=== PATIENT | female | born 1955 | race Hispanic/Latino ===

== ENCOUNTER 2017-06-07 12:01 | Emergency (ER) | payer OTHER ==
[~2017-06-07] VITALS: Ht 154.9 cm; Wt 91.4 kg
[2017-06-07 12:41] LABS: HEMATOCRIT 40.8 % (36.0-46.0); MCH 30.4 PG (29.0-34.0); MCHC 33.6 G/DL (30.0-36.0); MCV 90.7 FL (83-99); MEAN PLAT.VOLUME 10.8 uM^3 (9.5-12.4); PLATELET COUNT 153 K/uL (156-360); RBC DIS.WIDTH-CV 12.7 % (11.8-14.6); RBC DIS.WIDTH-SD 41.1 % (39-53); WHITE BLOOD COUNT 5.9 K/uL (4.1-10.2)
[2017-06-07 12:52] LABS: CHLORIDE 107 mEq/L (99-109); POTASSIUM 4.4 mEq/L (3.7-5.4); SODIUM 141 mEq/L (136-147)
[2017-06-07 12:54] LABS: GLUCOSE 102 mg/dL (70-99)
[2017-06-07 12:56] LABS: ANION GAP 9 MEQ/L (2-14)
[2017-06-07 12:59] LABS: UREA NITROGEN (BUN) 11 mg/dL (9-23)
[2017-06-07 13:01] LABS: GFR ESTIMATE (CALCULATED) > 59 mL/min/
[2017-06-07 13:02] LABS: TROP-I INTERPRETATION NEGATIVE; TROPONIN-I < 0.01 ng/mL (0.0-0.30)
[2017-06-07] MEDS ORDERED: METFORMIN HCL500 MG PO (13:59)
[2017-06-07] MEDS ORDERED: SINGULAIR10 MG PO (13:59)
[2017-06-07] MEDS ORDERED: LOSARTAN POTASS25 MG PO (14:00)
[2017-06-07] MEDS ORDERED: ZITHROMAX Z-PA250 MG PO (14:33)
[2017-06-07 15:01] VITALS: BP 146/102
== END 2017-06-07 15:05 | disposition home or self-care (01) ==
LOC: EME 12:01
DX: J40 Bronchitis, not specified as acute or chronic (principal); J02.9 Acute pharyngitis, unspecified; H92.09 Otalgia, unspecified ear; I10 Essential (primary) hypertension; E11.9 Type 2 diabetes mellitus without complications; Z79.84 Long term (current) use of oral hypoglycemic drugs
CPT/HCPCS: 71020; 80048; 84484; 85027; 93005; 99281; 99284

== ENCOUNTER 2017-12-06 17:11 | Observation (INO) | payer OTHER ==
[~2017-12-06] VITALS: Ht 157.5 cm; Wt 96.8 kg
[~2017-12-06 17:11] MED LIST: LOSARTAN POTASS25 MG PO; METFORMIN HCL500 MG PO; SINGULAIR10 MG PO; ZITHROMAX Z-PA250 MG PO
[2017-12-06 18:10] LABS: HEMATOCRIT 39.2 % (36.0-46.0); HEMOGLOBIN 13.6 G/DL (11.9-15.5); MCHC 34.7 G/DL (30.0-36.0); MCV 89.3 FL (83-99); PLATELET COUNT 151 K/uL (156-360); RBC DIS.WIDTH-CV 12.3 % (11.8-14.6); RBC DIS.WIDTH-SD 39.8 % (39-53); RED BLOOD COUNT 4.39 M/uL (3.80-5.20); WHITE BLOOD COUNT 5.4 K/uL (4.1-10.2)
[2017-12-06 18:17] LABS: CHLORIDE 106 mEq/L (99-109); POTASSIUM 4.6 mEq/L (3.7-5.4); SODIUM 143 mEq/L (136-147)
[2017-12-06 18:19] LABS: GLUCOSE 140 mg/dL (70-99)
[2017-12-06 18:23] LABS: CREATININE 0.7 mg/dL (0.6-1.3); GFR ESTIMATE (CALCULATED) > 59 mL/min/
[2017-12-06 18:24] LABS: UREA NITROGEN (BUN) 9 mg/dL (9-23)
[2017-12-06 18:48] LABS: TROP-I INTERPRETATION NEGATIVE; TROPONIN-I < 0.01 ng/mL (0.0-0.30)
[2017-12-06 18:48] LABS: APPEARANCE CLEAR ((CLEAR)); BILIRUBIN NEGATIVE; BLOOD NEGATIVE; COLOR STRAW ((YELLOW)); GLUCOSE (STRIP) NEGATIVE; KETONES NEGATIVE; LEUKOCYTES NEGATIVE; NITRITE NEGATIVE; PROTEIN (STRIP) NEGATIVE; SPECIFIC GRAVITY 1.008 (1.000-1.030); UCUL ADDED? NO; UROBILINOGEN 0.2 MG/DL (0.2-1.0)
[2017-12-06] MEDS ORDERED: LO-DOSE ASPIRIN81 M2 PO (20:44)
[2017-12-06] MEDS ORDERED: PRILOSEC20 MG PO (20:45)
[2017-12-06] MEDS ORDERED: FISH OIL 1,0001 EAC7 PO (20:46)
[2017-12-06] MEDS ORDERED: CYMBALTA30 MG PO (20:46)
[2017-12-06] MEDS ORDERED: CYMBALTA60 MG PO (20:47)
[2017-12-06] MEDS ORDERED: NEURONTIN300 MG PO (20:48)
[2017-12-06] MEDS ORDERED: PROAIR HFA8.5 GM IH (20:49)
[2017-12-06] MEDS ORDERED: [UNRECOGNIZED DRUG - OTHER] TP (20:52)
[2017-12-06] MEDS ORDERED: [UNRECOGNIZED DRUG - REMARK] SC (20:54)
[2017-12-06] MEDS ORDERED: BUSPIRONE HCL15 MG PO (20:55)
[2017-12-06] MEDS ORDERED: FLOVENT 11120 INHALA IH (21:12)
[2017-12-06] MEDS ORDERED: OMEPRAZOLE40 M1 PO (21:14)
[2017-12-06] MEDS ORDERED: CLOBETASOL PROP50 ML TP (21:14)
[2017-12-06] MEDS ORDERED: ASPIR-LOW81 MG PO (21:15)
[2017-12-06] MEDS ORDERED: LATANOPROST2.5 ML BOTH EYES (21:22)
[2017-12-06 21:41] LABS: D-DIMER ELISA < 150.00 ng/mLDDU (<230)
[2017-12-06 21:44] LABS: ALBUMIN 3.8 g/dL (3.2-4.8)
[2017-12-06 21:46] LABS: TOTAL PROTEIN 6.3 g/dL (6.4-8.3)
[2017-12-06 21:48] LABS: TOTAL BILIRUBIN 0.5 mg/dL (0.0-1.0)
[2017-12-06 21:49] LABS: ALKALINE PHOSPHATASE 68 IU/L (3-129)
[2017-12-06 21:52] LABS: ALT (GPT) 21 IU/L (3-49); AST (GOT) 18 IU/L (2-34); DIRECT BILIRUBIN 0.2 mg/dL (0.0-0.3)
[2017-12-06 21:53] LABS: LIPASE 15 U/L (1.0-51.0)
[2017-12-06 22:30] VITALS: BP 131/63
[2017-12-07 00:59] LABS: TROP-I INTERPRETATION NEGATIVE; TROPONIN-I < 0.01 ng/mL (0.0-0.30)
[2017-12-07 01:56] LABS: HDL CHOLESTEROL 39 MG/DL (Desirable>=50); LDL CHOLESTEROL 152 mg/dL (Desirable<100); NON-HDL CHOLESTEROL 197 mg/dL (Desirable<160); TOTAL CHOLESTEROL 236 mg/dL (Desirable<200); TRIGLYCERIDES 223 MG/DL (Normal: <150)
[2017-12-07 07:12] LABS: HEMATOCRIT 36.5 % (36.0-46.0); HEMOGLOBIN 12.5 G/DL (11.9-15.5); MCH 30.9 PG (29.0-34.0); MCHC 34.2 G/DL (30.0-36.0); MCV 90.1 FL (83-99); PLATELET COUNT 150 K/uL (156-360); RBC DIS.WIDTH-CV 12.5 % (11.8-14.6); RBC DIS.WIDTH-SD 40.2 % (39-53); RED BLOOD COUNT 4.05 M/uL (3.80-5.20); WHITE BLOOD COUNT 5.1 K/uL (4.1-10.2)
[2017-12-07 07:30] VITALS: BP 123/63
[2017-12-07 07:33] LABS: TROP-I INTERPRETATION NEGATIVE; TROPONIN-I < 0.01 ng/mL (0.0-0.30)
[2017-12-07 07:39] LABS: CHLORIDE 106 MEQ/L (99-109); CREATININE 0.7 MG/DL (0.6-1.3); GFR ESTIMATE (CALCULATED) > 59 mL/min/; GLUCOSE 136 mg/dL (70-99); POTASSIUM 4.2 MEQ/L (3.7-5.4); SODIUM 143 MEQ/L (136-147); UREA NITROGEN (BUN) 10 mg/dL (9-23)
[2017-12-07 09:37] LABS: HEMOGLOBIN A1c (GLYCOHEMOGLOB) 6.3 % (Below 5.7)
[2017-12-07 11:45] VITALS: BP 99/55
[2017-12-07 12:09] VITALS: BP 104/55
[2017-12-07] MEDS ORDERED: PRAVASTATIN SOD40 MG PO (12:11)
== END 2017-12-07 14:05 | disposition home or self-care (01) ==
LOC: EME 17:11 → EDOF 20:20 → 4SOUTH 20:20 → ENRESERV 20:31 → 4SOUTH 22:16 → ENPENDDIS 12-07 → 4SOUTH 12-07 14:05
PROVIDERS: Emergency Medicine; Hospitalist
DX: R55 Syncope and collapse (principal); R07.89 Other chest pain; E11.9 Type 2 diabetes mellitus without complications; E66.01 Morbid (severe) obesity due to excess calories; E78.5 Hyperlipidemia, unspecified; I10 Essential (primary) hypertension; E04.1 Nontoxic single thyroid nodule; M79.7 Fibromyalgia; H40.9 Unspecified glaucoma; K21.9 Gastro-esophageal reflux disease without esophagitis; K44.9 Diaphragmatic hernia without obstruction or gangrene; R53.1 Weakness; R42 Dizziness and giddiness; I25.2 Old myocardial infarction; Z90.49 Acquired absence of other specified parts of digestive tract; Z82.49 Family history of ischemic heart disease and other diseases of the circulatory system; Z81.8 Family history of other mental and behavioral disorders; Z88.8 Allergy status to other drugs, medicaments and biological substances
CPT/HCPCS: 70450; 71046; 80048; 80061; 80076; 81003; 83036; 83690; 84484; 85027; 85379; 93005; 93880; 99202; 99281; 99285; G0378; J1644; J2405; J7030; J7120